=== PATIENT | female | born 1930 | race Caucasian/White ===

== ENCOUNTER → 2016-07-11 | Outpatient (CLI) | payer MEDICARE, OTHER ==
[~2016-07-11] VITALS: Ht 165.1 cm; Wt 55.0 kg
[~2016-07-11] MED LIST: ASPIRIN 32325 MG/TAB PO; ATIVAN 0.50.5 MG/TAB PO; BRINTELLIX5 PO; CALCIUM 500 W/V1 TAB PO; CELEXA10 MG PO; CENTRUM SILVER1 CTB PO; HCTZ 25MG TAB25 MG PO; HYDROCHLOROTH12.5 MG PO; LIPITOR 10MG10 MG PO; LORAZEPAM0.5 MG PO; MIRALAX 255 GM255 GM PO; NEXIUM 20MG20 MG PO; NORCO 325 MG-7.1 TAB PO; PAMELOR 10MG10 MG PO; PRILOSEC 20MG20 MG PO; PROBIOTIC FORMU1 CAP PO; TOPCARE ASPIRIN81 M1 PO; VITAMIN D1000 IU PO; ZESTRIL2.5 MG PO
[2016-07-11 06:11] VITALS: BP 142/85; PULSE 65
[2016-07-11 07:52] VITALS: BP 154/87; PULSE 97
[2016-07-11 07:53] VITALS: BP 154/87; PULSE 97
[2016-07-11 07:55] VITALS: BP 152/64; PULSE 96
[2016-07-11 07:56] VITALS: BP 155/79; PULSE 93
[2016-07-11 07:58] VITALS: BP 1965/70; PULSE 96
== END ==
LOC: COL.CARD 05:54
DX: R07.89 Other chest pain (principal); R61 Generalized hyperhidrosis
CPT/HCPCS: A9502; J2785

== ENCOUNTER 2017-04-15 06:32 | Emergency (ER) | payer MEDICARE, OTHER ==
[~2017-04-15] VITALS: Ht 157.5 cm; Wt 54.5 kg
[2017-04-15 06:39] VITALS: TEMP 98.8
[2017-04-15 07:14] LABS: BASO # 0.1 (0.0-0.2); BASO % 0.9 % (0.0-2.0); EOS # 0.1 (0.0-0.7); EOS % 1.8 % (0-4.0); GRAN % 61.2 % (42.2-75.2); HEMATOCRIT 38.9 % (37.0-47.0); HEMOGLOBIN 13.5 g/dl (12.5-16.0); LYMPH # 1.8 (1.2-3.4); LYMPH % 27.7 % (20.0-51.0); MEAN CELL VOLUME 92 fl (80.0-100.0); MEAN CORPUSCULAR HEMOGLOBIN 32 pg (27.0-31.0); MEAN CORPUSCULAR HGB CONC 35 g/dl (33.0-37.0); MEAN PLATELET VOLUME 9.7 fl (7.4-10.4); MONO # 0.5 (0.1-0.6); MONO % 8.1 % (1.7-9.3); PLATELET COUNT 202 K/mm3 (130-400); RED BLOOD COUNT 4.23 M/mm3 (4.10-5.30); WHITE BLOOD COUNT 6.6 K/mm3 (4.8-10.8)
[2017-04-15 07:32] LABS: ADJUSTED CALCIUM 9.5 mg/dL (8.4-10.2); ALANINE AMINOTRANSFERASE 25 U/L (9-52); ALBUMIN 4.3 gm/dL (3.5-5.0); ALKALINE PHOSPHATASE 57 U/L (50-136); ANION GAP 8 mmol/L (7-16); BLOOD UREA NITROGEN 16 mg/dL (7-17); CALCIUM 9.7 mg/dL (8.4-10.2); CARBON DIOXIDE 31 mmol/L (22-30); CHLORIDE 99 mmol/L (98-107); CREATININE, serum 0.99 mg/dL (0.52-1.25); GLUCOSE 100 mg/dL (74-106); LIPASE 55 U/L (23-300); POTASSIUM 3.7 mmol/L (3.4-5.0); SODIUM 138 mmol/L (137-145); TOTAL PROTEIN 7.2 gm/dL (6.4-8.2)
[2017-04-15 07:36] LABS: C-REACTIVE PROTEIN < 0.5 mg/dL (0.0-0.9)
[2017-04-15 07:43] LABS: TROPONIN-I < 0.012 ng/mL (0.000-0.034)
[2017-04-15 10:51] VITALS: BP 186/79; PULSE 52
== END 2017-04-15 11:00 | disposition home or self-care (01) ==
LOC: COL.ER 06:32
PROVIDERS: Emergency Medicine
DX: R07.89 Other chest pain (principal); I10 Essential (primary) hypertension; E78.5 Hyperlipidemia, unspecified; K21.9 Gastro-esophageal reflux disease without esophagitis; Z90.710 Acquired absence of both cervix and uterus; Z79.82 Long term (current) use of aspirin

== ENCOUNTER → 2017-04-29 | Outpatient (CLI) | payer MEDICARE | LOC: COL.RAD 10:05 | DX: R10.13 Epigastric pain (principal) ==

== ENCOUNTER 2017-08-29 08:37 | Day surgery (SDC) | payer MEDICARE ==
[~2017-08-29] VITALS: Ht 160 cm; Wt 51.5 kg
[2017-08-29 09:08] VITALS: BP 150/89; PULSE 86; TEMP 98.2
[2017-08-29] MEDS ORDERED: LIPITOR 10MG10 MG PO (09:24)
[2017-08-29] MEDS ORDERED: CELEXA10 MG PO (09:24)
[2017-08-29 10:45] VITALS: BP 97/48; PULSE 62; TEMP 98.2
[2017-08-29 11:00] VITALS: BP 98/51; PULSE 57
[2017-08-29 11:15] VITALS: BP 93/60; PULSE 60
[2017-08-29 11:30] VITALS: BP 102/51; PULSE 60
[2017-08-29 13:40] VITALS: BP 90/46; PULSE 56
== END 2017-08-29 14:00 | disposition home or self-care (01) ==
LOC: SDCO 08:37
DX: K59.00 Constipation, unspecified (principal); R14.0 Abdominal distension (gaseous); K57.30 Diverticulosis of large intestine without perforation or abscess without bleeding; K21.9 Gastro-esophageal reflux disease without esophagitis; R53.82 Chronic fatigue, unspecified; E78.00 Pure hypercholesterolemia, unspecified; I10 Essential (primary) hypertension; Z79.82 Long term (current) use of aspirin; Z90.710 Acquired absence of both cervix and uterus; Z86.010 Personal history of colon polyps; Z87.891 Personal history of nicotine dependence
CPT/HCPCS: OP; J2250; J2405; J3010; J7030

== ENCOUNTER 2018-07-26 04:54 | Inpatient (IN) | payer MEDICARE ==
[2018-07-26] VITALS (641 sets, daily range): BP systolic 107–165; BP diastolic 50–88; PULSE 42–82; TEMP 97.4–98.5; O2SAT 87–100
[~2018-07-26] VITALS: Ht 160 cm; Wt 50.0 kg
[2018-07-26 05:23] LABS: BASO % 0.1 % (0.0-2.0); EOS # 0.1 (0.0-0.7); EOS % 0.7 % (0-4.0); GRAN # 8.7 (1.4-6.5); GRAN % 63.3 % (42.2-75.2); HEMATOCRIT 40.5 % (37.0-47.0); LYMPH # 3.5 (1.2-3.4); LYMPH % 25.9 % (20.0-51.0); MEAN CELL VOLUME 96 fl (80.0-100.0); MEAN CORPUSCULAR HEMOGLOBIN 33 pg (27.0-31.0); MEAN CORPUSCULAR HGB CONC 35 g/dl (33.0-37.0); MONO # 1.3 (0.1-0.6); MONO % 9.6 % (1.7-9.3); PLATELET COUNT 280 K/mm3 (130-400); RED BLOOD COUNT 4.22 M/mm3 (4.10-5.30); REDCELL DISTRIBUTION WIDTH-CV 12.8 % (11.5-14.5)
[2018-07-26 05:35] LABS: ALANINE AMINOTRANSFERASE 28 U/L (9-52); ALBUMIN 4.1 gm/dL (3.5-5.0); ALKALINE PHOSPHATASE 74 U/L (50-136); ANION GAP 8 mmol/L (7-16); AST,SGOT 31 U/L (15-37); BILIRUBIN,TOTAL 0.7 mg/dL (0.0-1.0); BLOOD UREA NITROGEN 32 mg/dL (7-17); CALCIUM 9.6 mg/dL (8.4-10.2); CARBON DIOXIDE 30 mmol/L (22-30); CHLORIDE 98 mmol/L (98-107); CREATININE, serum 0.99 mg/dL (0.52-1.25); GLUCOSE 96 mg/dL (74-106); POTASSIUM 3.8 mmol/L (3.4-5.0); SODIUM 136 mmol/L (137-145); TOTAL PROTEIN 6.9 gm/dL (6.4-8.2)
[2018-07-26 05:40] LABS: MAGNESIUM 1.8 mg/dL (1.6-2.3)
[2018-07-26 05:57] LABS: TROPONIN-I < 0.012 ng/mL (0.000-0.035)
--- NOTE | 2018-07-26 06:15 | NUR ---
Report received from Lorena CABALLERO from ED.
--- NOTE | 2018-07-26 06:20 | NUR ---
Pt arrived via stretcher to ICU05. Pt transfered X2 staff stand by assist with steady gait. Shoes removed as well as jeans at this time. Son in the waiting room.
--- NOTE | 2018-07-26 07:20 | NUR ---
Bedside report received from ADA Howard. Patient currently lying in bed with no c/o's. VS WNL. She is SR with frequent PACs on telemetry. Questions answered. Plan of care reviewed with patient. Care taken over.
--- NOTE | 2018-07-26 07:30 | NUR ---
Bedside report provided to Alanna CABALLERO. Pt resting in bed at this time with son at bedside.
--- NOTE | 2018-07-26 13:10 | NUR ---
Plan to return home, patient lives alone and has a son that is local. Assess: SW's visited patient about DC-plan. Patient reports that she is normally independent and does not need any assistance. Patient indicated that she resides in [facility], PCP is Dr. Alanis, uses [facility] for medications. Son Hemant is EMR contact and DPOA-HC. Patient denies the use of any DME or medication and care concerns. Action: No additional needs identified. We do not have copy of DPOA.
--- NOTE | 2018-07-26 18:15 | NUR ---
Patient arrived to room VIA wheelchair accompained by ICU nurse and daughter. Assisted to bed, transferred without difficulty. Does have normal saline being administered at 75/hr. Is noted to have an IV site to left upper arm and an INT to right forearm. Fluids are being ran in the left site. Patient is denying pain besides her chronic right knee/leg pain. Is alert and oriented. States can get around independently but does call for assistance due to IV pole.
--- NOTE | 2018-07-26 18:41 | NUR ---
Patient described quality of pain to right knee and leg. 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 Pain is controlled well with her PRN pain medications.
--- NOTE | 2018-07-26 20:30 | NUR ---
Shift assessment complete. Pt resting in bed, awake, a&o, cooperative c cares. Pt reports continued chronic leg pain, denies need for intervention at this time. INT patent. Tele in place. Pt denies further needs. Call light in reach, will monitor.
[2018-07-27] VITALS (11 sets, daily range): BP systolic 95–149; BP diastolic 45–78; PULSE 57–115; TEMP 98–98.4
[2018-07-27 06:14] LABS: BASO % 0.3 % (0.0-2.0); EOS # 0.3 (0.0-0.7); EOS % 3.7 % (0-4.0); GRAN # 4.8 (1.4-6.5); GRAN % 60.9 % (42.2-75.2); HEMOGLOBIN 12.2 g/dl (12.5-16.0); LYMPH # 2.1 (1.2-3.4); LYMPH % 26.2 % (20.0-51.0); MEAN CELL VOLUME 98 fl (80.0-100.0); MEAN CORPUSCULAR HEMOGLOBIN 33 pg (27.0-31.0); MEAN CORPUSCULAR HGB CONC 34 g/dl (33.0-37.0); MONO # 0.7 (0.1-0.6); MONO % 8.4 % (1.7-9.3); PLATELET COUNT 202 K/mm3 (130-400); RED BLOOD COUNT 3.67 M/mm3 (4.10-5.30); REDCELL DISTRIBUTION WIDTH-CV 12.7 % (11.5-14.5)
[2018-07-27 06:19] LABS: HEMATOCRIT 35.9 % (37.0-47.0)
[2018-07-27 06:27] LABS: ANION GAP 4 mmol/L (7-16); BLOOD UREA NITROGEN 17 mg/dL (7-17); CALCIUM 8.5 mg/dL (8.4-10.2); CARBON DIOXIDE 31 mmol/L (22-30); CHLORIDE 102 mmol/L (98-107); CHOLESTEROL 168 mg/dL (120-200); CHOLESTEROL RISK RATIO 3.3; CREATININE, serum 0.76 mg/dL (0.52-1.25); GLUCOSE 90 mg/dL (74-106); HDL CHOLESTEROL 50 mg/dL; LDL CHOLESTEROL 102 mg/dL; POTASSIUM 3.7 mmol/L (3.4-5.0); SODIUM 137 mmol/L (137-145); TRIGLYCERIDE 81 mg/dL
[2018-07-27 06:39] LABS: TROPONIN-I < 0.012 ng/mL (0.000-0.035)
--- NOTE | 2018-07-27 07:55 | NUR ---
Pt left the floor at this time for procedure.
--- NOTE | 2018-07-27 09:40 | NUR ---
Pt returned to room 319.
--- NOTE | 2018-07-27 10:00 | NUR ---
Assessment complete. Pt is AXO X3, states she has a headache rated at an 8/10. Breathing is even and unlabored on room air. Tele on. RF and CLIVE IV's both flush easily, remain free of complications, and are CDI. Pt is resting quielty in the bed at this time and she denies further needs. Call light within reach, will continue to monitor.
--- NOTE | 2018-07-27 11:36 | NUR ---
First visit from the gear cutting machine operator. No needs right now.
--- NOTE | 2018-07-27 18:30 | NUR ---
Pt has been resting on and off throughout the day. She has had intermittent pain to her R knee. Pain medication adminstered on AUG. Pt is sitting up in the bed watching TV at this time and she denies further needs. Call light within reach.
--- NOTE | 2018-07-27 18:43 | NUR ---
Report given to ADA Doss.
--- NOTE | 2018-07-27 19:05 | NUR ---
Shift assessment complete. Pt resting in bed, awake, a&o, cooperative c cares. Pt c/o continued chronic R knee pain, pain med recently admin et pt denies need for intervention at this time. IV patent. Tele in place. Pt denies needs at this time. Call light in reach, will monitor.
[2018-07-28 04:36] VITALS: BP 124/63; PULSE 98; TEMP 98.4
[2018-07-28 07:23] LABS: BASO % 0.3 % (0.0-2.0); EOS # 0.6 (0.0-0.7); GRAN # 6.8 (1.4-6.5); GRAN % 66.4 % (42.2-75.2); HEMOGLOBIN 11.6 g/dl (12.5-16.0); LYMPH # 1.9 (1.2-3.4); LYMPH % 18.3 % (20.0-51.0); MEAN CELL VOLUME 98 fl (80.0-100.0); MEAN CORPUSCULAR HEMOGLOBIN 33 pg (27.0-31.0); MEAN CORPUSCULAR HGB CONC 33 g/dl (33.0-37.0); MEAN PLATELET VOLUME 9.8 fl (7.4-10.4); MONO # 0.9 (0.1-0.6); MONO % 8.6 % (1.7-9.3); PLATELET COUNT 201 K/mm3 (130-400); RED BLOOD COUNT 3.54 M/mm3 (4.10-5.30); REDCELL DISTRIBUTION WIDTH-CV 12.4 % (11.5-14.5)
[2018-07-28 07:32] LABS: HEMATOCRIT 34.8 % (37.0-47.0)
[2018-07-28 07:42] LABS: CREATININE, serum 0.76 mg/dL (0.52-1.25); MAGNESIUM 1.6 mg/dL (1.6-2.3); POTASSIUM 3.9 mmol/L (3.4-5.0)
[2018-07-28 08:00] VITALS: BP 158/68; PULSE 98; TEMP 98
--- NOTE | 2018-07-28 08:05 | NUR ---
Assessment complete. Pt is AXO X3, denies having any pain at this time. Breathing is even and unlabored on room air. Tele on. RF and CLIVE IV's both flush easily, remain free of complications, and are CDI. Pt is sitting up in the bed finishing her breakfast at this time and she denies further needs. Call light within reach, will continue to monitor.
[2018-07-28 11:55] VITALS: BP 134/61; PULSE 52; TEMP 98.2
[2018-07-28 15:53] VITALS: BP 113/49; PULSE 43; TEMP 98
--- NOTE | 2018-07-28 18:01 | NUR ---
Pt has been resting on and off throughout the day. She has had intermittent pain in her R knee. Pain medication administered on AUG. Pt is sitting up in the bed eating her dinner at this time and she denies further needs. Call light within reach.
--- NOTE | 2018-07-28 18:45 | NUR ---
Report given to ADA Doss.
--- NOTE | 2018-07-28 19:33 | NUR ---
Shift assessment complete. Pt resting in bed, awake, a&o, cooperative c cares. Pt reports continued chronic R knee pain, PRN med recently admin, denies needs at this time. IV's patent. Tele in place, pt remains bradycardic, asymptomatic. PT denies needs. Call light in reach, will monitor.
[2018-07-28 19:35] VITALS: BP 135/60; PULSE 82; TEMP 98
[2018-07-28 23:27] VITALS: BP 110/56; PULSE 101; TEMP 98.1
[2018-07-29 04:30] VITALS: BP 104/73; PULSE 52; TEMP 98.5
--- NOTE | 2018-07-29 07:27 | NUR ---
Resting in bed at this time. No pain or needs reported. The call light is in place.
[2018-07-29 07:38] LABS: BASO % 0.3 % (0.0-2.0); EOS # 0.6 (0.0-0.7); EOS % 5.6 % (0-4.0); GRAN # 8.2 (1.4-6.5); GRAN % 71.8 % (42.2-75.2); HEMOGLOBIN 12.2 g/dl (12.5-16.0); LYMPH # 1.7 (1.2-3.4); LYMPH % 15.1 % (20.0-51.0); MEAN CELL VOLUME 98 fl (80.0-100.0); MEAN CORPUSCULAR HEMOGLOBIN 33 pg (27.0-31.0); MEAN CORPUSCULAR HGB CONC 33 g/dl (33.0-37.0); MEAN PLATELET VOLUME 9.8 fl (7.4-10.4); MONO # 0.8 (0.1-0.6); MONO % 6.8 % (1.7-9.3); PLATELET COUNT 203 K/mm3 (130-400); RED BLOOD COUNT 3.72 M/mm3 (4.10-5.30); REDCELL DISTRIBUTION WIDTH-CV 12.8 % (11.5-14.5)
[2018-07-29 07:39] LABS: HEMATOCRIT 36.5 % (37.0-47.0)
[2018-07-29 07:47] LABS: CALCIUM 8.2 mg/dL (8.4-10.2); CREATININE, serum 0.73 mg/dL (0.52-1.25); MAGNESIUM 1.7 mg/dL (1.6-2.3); POTASSIUM 4.4 mmol/L (3.4-5.0)
[2018-07-29 07:49] VITALS: BP 165/60; PULSE 48; TEMP 98
[2018-07-29] MEDS ORDERED: BETAPACE 80MG80 MG PO (10:40)
[2018-07-29] MEDS ORDERED: ELIQUIS 2.5 PO (10:40)
--- NOTE | 2018-07-29 13:10 | NUR ---
SW attended clinical rounds. Patient will be discharging home today. SW presented IM to patient. She signed but did not want a copy.
--- NOTE | 2018-07-29 13:22 | NUR ---
Discharge education completed with the patient. All questions answered. The was here at 1230 to medicinal plant picker the patient. Escorted out via wheelchair.
== END 2018-07-29 13:23 | disposition home or self-care (01) | DRG 310 ==
LOC: COL.ER 04:54 → ICU 05:44 → MEDICAL 17:53
PROVIDERS: Emergency Medicine; ADMIT Hospitalist
DX: I48.0 Paroxysmal atrial fibrillation (principal); I47.1 Supraventricular tachycardia; I10 Essential (primary) hypertension; I25.10 Atherosclerotic heart disease of native coronary artery without angina pectoris; E78.5 Hyperlipidemia, unspecified; K21.9 Gastro-esophageal reflux disease without esophagitis; M17.11 Unilateral primary osteoarthritis, right knee; I27.20 Pulmonary hypertension, unspecified; I08.0 Rheumatic disorders of both mitral and aortic valves; F32.9 Major depressive disorder, single episode, unspecified
CPT/HCPCS: 99222-AI; 99231-AI; 99232-AI; 99239; A9500; J0153; J1650; J2785; J7030

== ENCOUNTER 2018-09-24 12:32 | Inpatient (IN) | payer MEDICARE ==
[~2018-09-24] VITALS: Ht 160 cm; Wt 47.6 kg
[~2018-09-24 12:32] MED LIST changes: +BETAPACE 80MG80 MG PO; +ELIQUIS 2.5 PO
[2018-09-29] MEDS ORDERED: ELIQUIS 2.5 PO (11:01)
[2018-09-29] MEDS ORDERED: BETAPACE 80MG80 MG PO (11:02)
[2018-10-27] VITALS (11 sets, daily range): BP systolic 77–150; BP diastolic 41–71; PULSE 16–77; TEMP 97.2–98.6
--- NOTE | 2018-10-27 07:08 | NUR ---
pt admitted ambulatory to room 329.
--- NOTE | 2018-10-27 08:31 | NUR ---
report to Jeremy Hoffman CRNA.
--- NOTE | 2018-10-27 12:32 | NUR ---
PT TO ROOM 329 PER BED WITH REPORT FROM DEVYN CABALLERO PACU @ 1230. PT IS DROWSEY BUT AROUSES TO VERBAL. VSS, LUNG CLEAR, BOWEL SOUNDS PRESENT. PEDAL PULSES PALPABLE. CRYOCUFF OVER AQUACEL DRESSING IS CDI. TEDS AND SCDS PLACED BILATERALLLY, BARRERA CATHETER TO DD WITH CLEAR YELLOW URINE IN BAG. PT DENIES PAIN OR NEEDS AT THIS TIME.
--- NOTE | 2018-10-27 13:22 | NUR ---
HUBER met with the patient and her son Hemant to discuss a discharge plan. The patient was postop and sleepy. Hemant answered the questions. The patient lives alone [place] mile out of [place]. The son reports he and his live in [place] and is a support for the patient. The patient has walker but does not need it to ambulate. The patient is independent with ADLs. The patient's PCP is Dr. William Alanis. The patient receives her medications at [facility] in [place] and Hemant reports she drives herself to pick them up. The patient does not have advanced directives in the EMR. Hemant was unsure if the patient has advanced directives completed. Hemant reports the [facility] is interested [facility] if a skilled stay is recommended . HUBER will continue to follow.
--- NOTE | 2018-10-27 18:43 | NUR ---
REPORT TO ESTRELLA CABALLERO.
--- NOTE | 2018-10-27 20:00 | NUR ---
REPORT RECEIVED. ASSUMED CARE FOR WAITER/WAITRESS DINING CAR. ASSESSMENT COMPLETE. A&OX3-VERY DROWSY. HAS NOT HAD ANY PO INTAKE-ICE WATER AND TEA PROVIDED PER REQUEST, REFUSED BASIC CLEAR LIQUIDS BUT DID EAT SOME YOGURT WITHOUT N/V. AQUACELL DRESSING TO RIGHT KNEE-CLEAN/DRY/INTACT. MIRANDA HOSE AND SCDS ON. RIGHT LOWER EXTREMITY ELEVATED ON PILLOW-FRESH ICE PACK APPLIED. RATING PAIN 6/10 TO RIGHT KNEE. NORCO GIVEN PER DR ORDER. PLAN OF CARE DISCUSSED FOR ATTEMPTING TO GET UP OUT OF BED LATER THIS SHIFT TO AMBULATE. VERBALIZES UNDERSTANDING. CALL LIGHT WITHIN REACH. BED IN LOW POSITION WHEELS LOCKED.
--- NOTE | 2018-10-27 21:00 | NUR ---
SAT ON SIDE OF BED. C/O FEELING DIZZY/LIGHTHEADED. DID STAND FOR ABOUT TWENTY SECONDS. WILL ATTEMPT AGAIN LATER-SEEMS VERY DROWSY.
--- NOTE | 2018-10-28 00:15 | NUR ---
NOTED TO HAVE SEVERAL LOW BLOOD PRESSURES THIS SHIFT.PROVIDER PAGED ANDNEW ORDERS RECEIVED TO GIVE D5 1/2 NS 500ML BOLUS. WILL INITIATE AND MONITOR BLOOD PRESSURE.
--- NOTE | 2018-10-28 01:30 | NUR ---
RECHECK OF BLOOD PRESSURE POST BOLUS-108/52. WILL MONITOR CLOSELY.
[2018-10-28 04:30] VITALS: BP 82/38; PULSE 52; TEMP 98
--- NOTE | 2018-10-28 05:50 | NUR ---
NOTIFIED PROVIDER BELL NECK HAMMERER OF LOW BLOOD PRESSURE 80S/40S. NEW ORDER RECEIVED TO CONSULT HOSPITALIST. PATIENT STATED SHE FELT "LOOPY-DISORIENTED." BLOOD PRESSURE RECHECKED. 101/51. DR HENDERSON IN ROOM. VERBAL ORDER TO REPEAT BOLUS.
--- NOTE | 2018-10-28 06:05 | NUR ---
HOSPITALIST CONTACTED FOR CONSULT.
[2018-10-28 07:26] LABS: BASO % 0.2 % (0.0-2.0); GRAN # 15.1 (1.4-6.5); GRAN % 87.1 % (42.2-75.2); HEMATOCRIT 34.6 % (37.0-47.0); HEMOGLOBIN 11.4 g/dl (12.5-16.0); LYMPH # 1.2 (1.2-3.4); LYMPH % 7.1 % (20.0-51.0); MEAN CELL VOLUME 98 fl (80.0-100.0); MEAN CORPUSCULAR HEMOGLOBIN 32 pg (27.0-31.0); MEAN CORPUSCULAR HGB CONC 33 g/dl (33.0-37.0); MONO # 0.9 (0.1-0.6); MONO % 5.1 % (1.7-9.3); PLATELET COUNT 245 K/mm3 (130-400); RED BLOOD COUNT 3.54 M/mm3 (4.10-5.30); REDCELL DISTRIBUTION WIDTH-CV 13.3 % (11.5-14.5)
[2018-10-28 07:37] LABS: ALBUMIN 3.1 gm/dL (3.5-5.0); BILIRUBIN,TOTAL 0.6 mg/dL (0.0-1.0); CALCIUM 8.1 mg/dL (8.4-10.2); CREATININE, serum 0.99 (0.52-1.25); POTASSIUM 4.4 mmol/L (3.4-5.0); TOTAL PROTEIN 5.5 gm/dL (6.4-8.2)
[2018-10-28 08:44] LABS: COLLECTION METHOD CLEAN CATCH
--- NOTE | 2018-10-28 08:44 | NUR ---
HUBER met with the patient to discuss the patient choice form in case a long term stay is recommended. The patient chose [facility] as her first choice and did not want a second choice. The patient signed the form. A copy was provided to the patient and the original was placed in the patient's chart. HUBER faxed a referral to Tashia at [facility]. HUBER awaiting a response. HUBER will continue to follow.
--- NOTE | 2018-10-28 08:48 | NUR ---
PT SITTING UP IN BED. DRESSING TO RIGHT KNEE CDI. HOSPITALIST IN TO SEE PATIENT THIS AM SEE COMPUTER FOR ORDERS. PO PAIN MEDS GIVEN PER ORDERS.
[2018-10-28 08:50] LABS: PH 6 (5-8); SQUAMOUS EPITHELIAL None Seen /hpf; URINE APPEARANCE Clear; URINE BACTERIA None Seen /hpf; URINE BILIRUBIN Negative (NEGATIVE); URINE BLOOD 2+ (NEGATIVE); URINE COLOR Straw; URINE GLUCOSE Negative (NEGATIVE); URINE KETONE Negative (NEGATIVE); URINE LEUKOCYTE ESTERASE Trace (NEGATIVE); URINE NITRATE Negative (NEGATIVE); URINE PROTEIN(semi-quant) Negative (NEGATIVE); URINE UROBILINOGEN Negative (NEGATIVE)
[2018-10-28 09:22] VITALS: BP 112/53; PULSE 50; TEMP 98
[2018-10-28 12:30] VITALS: BP 108/51; PULSE 48; TEMP 98.4
--- NOTE | 2018-10-28 13:47 | NUR ---
Initial visit; Patient thanked Health Information Clerk for looking in on her and offering prayer and God's blessings.
--- NOTE | 2018-10-28 15:24 | NUR ---
BARRERA CATHETER DISCONTINUED TIP INTACT PT TOLERATED WELL.
[2018-10-28 16:48] VITALS: BP 91/66; PULSE 53; TEMP 98.6
--- NOTE | 2018-10-28 18:56 | NUR ---
Report to Robles CABALLERO.
[2018-10-28 19:41] VITALS: BP 91/58; PULSE 57; TEMP 98.6
--- NOTE | 2018-10-28 21:30 | NUR ---
Pt. sitting up in bed at this time. Pt. A&OX3, assessment complete. Pt. reports no pain at this time. Pt. up to ambulate halls. Pt. assisted with stand by assist, walker and gait belt. Pt. tolerated well. Dressing to rt. knee CDI. Pt. denies further needs, call light within reach.
[2018-10-29 00:31] VITALS: BP 118/45; PULSE 50; TEMP 97.5
[2018-10-29 04:00] VITALS: BP 102/59; PULSE 65; TEMP 98
--- NOTE | 2018-10-29 06:40 | NUR ---
awake resting in bed, bedside shift report received from Robles RN, son at bedside
[2018-10-29 06:46] LABS: BASO % 0.4 % (0.0-2.0); EOS # 0.2 (0.0-0.7); EOS % 1.7 % (0-4.0); GRAN # 7.7 (1.4-6.5); GRAN % 71.4 % (42.2-75.2); LYMPH # 1.8 (1.2-3.4); LYMPH % 16.7 % (20.0-51.0); MEAN CELL VOLUME 97 fl (80.0-100.0); MEAN CORPUSCULAR HGB CONC 33 g/dl (33.0-37.0); MEAN PLATELET VOLUME 10.8 fl (7.4-10.4); MONO % 9.4 % (1.7-9.3); PLATELET COUNT 193 K/mm3 (130-400); RED BLOOD COUNT 3.12 M/mm3 (4.10-5.30); REDCELL DISTRIBUTION WIDTH-CV 13.5 % (11.5-14.5)
[2018-10-29 06:48] LABS: HEMATOCRIT 30.4 % (37.0-47.0); HEMOGLOBIN 9.9 g/dl (12.5-16.0); MEAN CORPUSCULAR HEMOGLOBIN 32 pg (27.0-31.0)
[2018-10-29 06:58] LABS: BILIRUBIN,TOTAL 0.5 mg/dL (0.0-1.0); CALCIUM 8.2 mg/dL (8.4-10.2); CREATININE, serum 0.95 (0.52-1.25); POTASSIUM 4.3 mmol/L (3.4-5.0); TOTAL PROTEIN 5.5 gm/dL (6.4-8.2)
--- NOTE | 2018-10-29 07:50 | NUR ---
sitting up in bed and eating breakfast
[2018-10-29 07:56] VITALS: BP 107/45; PULSE 59; TEMP 98.6
--- NOTE | 2018-10-29 08:45 | NUR ---
full assessment completed, see interventions for further info
[2018-10-29] MEDS ORDERED: NORCO 325 MG-7.1 TAB PO (09:04)
[2018-10-29] MEDS ORDERED: ROXICODONE 55 MG/TAB PO (09:05)
--- NOTE | 2018-10-29 09:15 | NUR ---
ambulated out to king with physical therapy for group exercises
--- NOTE | 2018-10-29 10:02 | NUR ---
ambulated back to room after therapy and resting in chair
--- NOTE | 2018-10-29 10:23 | NUR ---
HUBER faxed update to Tashia at [facility].
--- NOTE | 2018-10-29 11:30 | NUR ---
c/o pain to right knee and medicated hydrocodone 7.5mg 1 tab, denies other needs
[2018-10-29 11:36] VITALS: BP 111/39; PULSE 54; TEMP 99.5
--- NOTE | 2018-10-29 12:25 | NUR ---
continued to c/o pain to right knee and medicated with second tablet of hydrocodone 7.5mg 1 tab
--- NOTE | 2018-10-29 13:26 | NUR ---
out in king with physical therapy for group exercises
--- NOTE | 2018-10-29 13:35 | NUR ---
back in bed after therapy with right leg elevated, declines lunch and is ready to nap
--- NOTE | 2018-10-29 15:06 | NUR ---
appears to be sleeping, in bed with eyes closed, resp quiet and easy
--- NOTE | 2018-10-29 15:44 | NUR ---
appears to continue to sleep
--- NOTE | 2018-10-29 16:30 | NUR ---
awake and sitting up on side of bed, c/o pain and medicated with hydrocodone 7.5mg 2 tabs
[2018-10-29 16:36] VITALS: BP 131/72; PULSE 63; TEMP 97.9
--- NOTE | 2018-10-29 17:59 | NUR ---
sitting up in bed eating suppper, states relief of pain from pain pills
--- NOTE | 2018-10-29 18:44 | NUR ---
bedside shift report given to ADA Arboleda
[2018-10-29 20:00] VITALS: BP 114/46; PULSE 53; TEMP 98.2
--- NOTE | 2018-10-29 20:39 | NUR ---
Pt.'s tele perameters adjusted per. orders.
--- NOTE | 2018-10-29 20:45 | NUR ---
Pt. sitting up in bed at this time. Pt. is A&OX3, assessment complete. INT to lt. hand patent. Dressing to rt. knee CDI. Pt. ambulated the king with standby assist, gait belt and walker. Pt. tolerated well. Pt. denies further needs at this time. Call light within reach.
[2018-10-30] VITALS: BP 113/50; PULSE 51; TEMP 98.2
[2018-10-30 06:44] LABS: BASO % 0.3 % (0.0-2.0); EOS # 0.2 (0.0-0.7); EOS % 2.1 % (0-4.0); GRAN % 73.5 % (42.2-75.2); LYMPH # 1.3 (1.2-3.4); MEAN CELL VOLUME 95 fl (80.0-100.0); MEAN CORPUSCULAR HGB CONC 33 g/dl (33.0-37.0); MEAN PLATELET VOLUME 10.4 fl (7.4-10.4); MONO # 0.9 (0.1-0.6); MONO % 9.8 % (1.7-9.3); PLATELET COUNT 183 K/mm3 (130-400); RED BLOOD COUNT 3.03 M/mm3 (4.10-5.30); REDCELL DISTRIBUTION WIDTH-CV 13.2 % (11.5-14.5)
[2018-10-30 06:52] LABS: HEMATOCRIT 28.8 % (37.0-47.0); HEMOGLOBIN 9.6 g/dl (12.5-16.0); MEAN CORPUSCULAR HEMOGLOBIN 32 pg (27.0-31.0)
[2018-10-30 08:07] VITALS: BP 104/47; PULSE 49; TEMP 98.2
--- NOTE | 2018-10-30 08:47 | NUR ---
PT UP IN BED FOR BREAKFAST.DRESSING TO RIGHT KNEE CDI. AM MEDS GIVEN ORDERED.
--- NOTE | 2018-10-30 09:19 | NUR ---
The patient is to discharge to [facility] today, 10/30. SW faxed update and discharge orders. SW awaiting transport time confirmation. SW will continue to follow.
--- NOTE | 2018-10-30 09:36 | NUR ---
The patient will be transported to [facility] AT 1030 today, 10/30. SW informed the patient and the patient's nurse, all were in agreeance. There are no additional needs at this time.
[2018-10-30 10:04] VITALS: BP 104/47; PULSE 49; TEMP 98.2
--- NOTE | 2018-10-30 10:12 | NUR ---
REPORT CALLED TO CASSANDRA SOU[facility].
--- NOTE | 2018-10-30 11:27 | NUR ---
PT TRANSFERED TO [facility] @ [id number].
== END 2018-10-30 11:28 | DRG 470 ==
LOC: JCC 10-27 06:31
PROVIDERS: Internal Medicine; Nurse Practitioner Family; ADMIT Orthopaedic Surgery
PROC: 0SRC0J9 Replacement of Right Knee Joint with Synthetic Substitute, Cemented, Open Approach (ICD-10-PCS; principal; 2018-10-27 09:30)
DX: M17.11 Unilateral primary osteoarthritis, right knee (principal); J90 Pleural effusion, not elsewhere classified; M54.2 Cervicalgia; Z88.8 Allergy status to other drugs, medicaments and biological substances; I10 Essential (primary) hypertension; I48.0 Paroxysmal atrial fibrillation; I95.2 Hypotension due to drugs; T46.5X5A Adverse effect of other antihypertensive drugs, initial encounter; I95.81 Postprocedural hypotension; D72.828 Other elevated white blood cell count
CPT/HCPCS: 99223; 99231-AI; 99232-AI; A4216; A4314; C1776; J0360; J0690; J0696; J2250; J2370; J2405; J2704; J3010; J7040; J7120

== ENCOUNTER 2018-09-29 10:40 | Outpatient (RCR) | payer MEDICARE ==
[~2018-09-29] VITALS: Ht 160 cm; Wt 49.3 kg
[2018-09-29] MEDS ORDERED: ELIQUIS 2.5 PO (11:01)
[2018-09-29] MEDS ORDERED: BETAPACE 80MG80 MG PO (11:02)
[2018-09-29 11:11] VITALS: BP 170/63; PULSE 50; TEMP 98.2
== END 2018-09-29 11:00 | disposition home or self-care (01) ==
LOC: EUO 10:40
DX: M81.0 Age-related osteoporosis without current pathological fracture (principal)
CPT/HCPCS: J0897

== ENCOUNTER → 2018-11-03 | Outpatient (REF) ==
[~2018-11-03] MED LIST changes: +ROXICODONE 55 MG/TAB PO
[2018-11-03 20:39] LABS: COLLECTION METHOD CLEAN CATCH
[2018-11-03 20:47] LABS: PH 8 (5-8); SQUAMOUS EPITHELIAL None Seen /hpf; URINE APPEARANCE Clear; URINE BACTERIA None Seen /hpf; URINE BILIRUBIN Negative (NEGATIVE); URINE BLOOD Negative (NEGATIVE); URINE COLOR Yellow; URINE GLUCOSE Negative (NEGATIVE); URINE KETONE Negative (NEGATIVE); URINE LEUKOCYTE ESTERASE Negative (NEGATIVE); URINE NITRATE Negative (NEGATIVE); URINE PROTEIN(semi-quant) Negative (NEGATIVE); URINE RBC 0-2 /hpf; URINE WBC 0-2 /hpf
== END ==
LOC: ZCOL.LAB 20:38
PROVIDERS: Family Medicine
DX: N39.0 Urinary tract infection, site not specified (principal)